=== PATIENT | male | born 2000 | race Caucasian/White ===

== ENCOUNTER 2021-01-23 23:23 | Emergency (ER) | payer SELFPAY ==
[2021-01-23] MEDS ORDERED: Ondansetron PF 4 MG/2 ML Vial ONE (23:42)
== END 2021-01-24 03:34 | disposition home or self-care (01) ==
LOC: ERS 23:23
DX: F10.129 Alcohol abuse with intoxication, unspecified (principal)
CPT/HCPCS: 96374; J2405